=== PATIENT | male | born 1955 | race Two or more races ===

== ENCOUNTER 2024-03-14 10:05 | Emergency (ER) | payer OTHER ==
[~2024-03-14] VITALS: Ht 165.1 cm; Wt 82.0 kg
[2024-03-14 10:09] VITALS: TEMP 98
[2024-03-14 12:00] VITALS: BP 134/78; PULSE 72; RESP 16
== END 2024-03-14 13:08 | disposition home or self-care (01) ==
LOC: EMS 10:10
DX: L76.22 Postprocedural hemorrhage of skin and subcutaneous tissue following other procedure (principal); Z48.00 Encounter for change or removal of nonsurgical wound dressing; I10 Essential (primary) hypertension
CPT/HCPCS: 99281; Z7502